=== PATIENT | male | born 1985 | race American Indian/Alaskan Native ===

== ENCOUNTER 2019-01-14 20:10 | Emergency (ER) | payer OTHER ==
[2019-01-14] MEDS ORDERED: KEPPRA 1,000 MG/NS 0.75% 100ML 1,000 MG/100 ML BAG IV ONE (20:30)
[2019-01-14] MEDS ORDERED: ZOFRAN IV ONE (20:32)
[2019-01-14 20:40] LABS: Hematocrit 47.4 % (35.5-45.6); Hemoglobin 16.2 gm/dl (11.8-15.2); Mean Corpuscular HGB Conc 34 % (32-34); Mean Corpuscular Volume 93 fl (84-94); Platelet Count 258 K/mm3 (140-440); Red Blood Count 5.11 M/mm3 (3.65-5.03); Red Cell Distribution Width 14.4 % (13.2-15.2)
[2019-01-14 20:52] LABS: BUN/Creatinine Ratio 10; Blood Urea Nitrogen 12 mg/dL (9-20); Calcium 10.4 mg/dL (8.4-10.2); Hemolysis Index 18
[2019-01-14 21:27] LABS: Amphetamine Screen,Urine PRESUMPTIVE NEGATIVE; Benzodiazepines Screen,Urine PRESUMPTIVE NEGATIVE; Cocaine Screen,Urine PRESUMPTIVE NEGATIVE; Methadone Screen,Urine PRESUMPTIVE NEGATIVE; Opiate Screen,Urine PRESUMPTIVE NEGATIVE
[2019-01-14 21:39] LABS: Cannabinoid Screen,Urine PRESUMPTIVE POSITIVE
--- NOTE | 2019-01-14 23:33 | Emergency Department Report ---
ED Seizure HPI - General Chief Complaint: Seizure Stated Complaint: AMS Time Seen by Provider: 01/14/19 20:28 Source: patient, EMS Mode of arrival: Stretcher Limitations: No Limitations - History of Present Illness Initial Comments: Mr. Gamez is a healthy 33-year-old male who was witnessed to have a seizure while in an intersection. Generalized tonic-clonic seizure witnessed by onlooker. EMS was contacted. 5 years ago he had one seizure. He was evaluated in the emergency department. However he did not follow-up. He is extremely healthy. He does use marijuana. He's had mild headache and abdominal pain after the seizure. However over the last several days he has been in good health. Prior to the seizure he does not have any symptoms or medical concerns. MD Complaint: seizure -: Sudden, This evening Description of Episode: loss of consciousness, tonic-clonic movement Witnessed:: Yes Trauma: No Seizure History: other (1 previous seizure 5 years ago) Place: street/outdoors Associated Symptoms: denies other symptoms - Related Data Previous Rx's Medication Instructions Recorded Last Taken Type levETIRAcetam [Keppra] 500 mg PO BID 30 Days #60 tablet 01/14/19 Unknown Rx Allergies Allergy/AdvReac Type Severity Reaction Status Date / Time No Known Allergies Allergy Unverified 01/14/19 20:18 ED Review of Systems ROS: Stated complaint: AMS Other details as noted in HPI Comment: All other systems reviewed and negative Constitutional: denies: fever, malaise Cardiovascular: denies: chest pain ED Past Medical Hx - Past Medical History Previous Medical History?: Yes Hx Seizures: Yes - Social History Smoking Status: Current Every Day Smoker Substance Use Type: Alcohol, Marijuana - Medications Home Medications: Home Medications Medication Instructions Recorded Confirmed Last Taken Type levETIRAcetam [Keppra] 500 mg PO BID 30 Days #60 tablet 01/14/19 Unknown Rx ED Physical Exam - General Limitations: No Limitations General appearance: alert, in no apparent distress - Head Head exam: Present: atraumatic, normocephalic - Eye Eye exam: Present: normal appearance - ENT ENT exam: Present: mucous membranes moist - Neck Neck exam: Present: normal inspection, full ROM - Respiratory Respiratory exam: Present: normal lung sounds bilaterally. Absent: respiratory distress, wheezes, rales, rhonchi, stridor - Cardiovascular Cardiovascular Exam: Present: regular rate, normal rhythm, normal heart sounds. Absent: systolic murmur, diastolic murmur, rubs, gallop - GI/Abdominal GI/Abdominal exam: Present: soft, normal bowel sounds. Absent: distended, tende rness, guarding, rebound - Rectal Rectal exam: Present: deferred - Extremities Exam Extremities exam: Present: normal inspection - Back Exam Back exam: Present: normal inspection - Neurological Exam Neurological exam: Present: alert, oriented X3, CN II-XII intact, normal gait. Absent: motor sensory deficit - Psychiatric Psychiatric exam: Present: normal affect, normal mood - Skin Skin exam: Present: warm, dry, intact, normal color. Absent: rash ED Course Vital Signs 01/14/19 20:16 Temperature 97.8 F Pulse Rate 74 Respiratory 18 Rate Blood Pressure 117/56 [Right] O2 Sat by Pulse 96 Oximetry ED Medical Decision Making - Lab Data Result diagrams: 01/14/19 20:34 01/14/19 20:34 Laboratory Results - last 24 hr 01/14/19 01/14/19 01/14/19 20:34 20:34 20:34 WBC 6.6 RBC 5.11 H Hgb 16.2 H Hct 47.4 H MCV 93 MCH 32 MCHC 34 RDW 14.4 Plt Count 258 Sodium 141 Potassium 4.6 Chloride 100.5 Carbon Dioxide 14 L Anion Gap 31 BUN 12 Creatinine 1.2 Estimated GFR > 60 BUN/Creatinine Ratio 10 Glucose 123 H Calcium 10.4 H Troponin T < 0.010 Urine Opiates Screen Urine Methadone Screen Ur Barbiturates Screen Ur Phencyclidine Scrn Ur Amphetamines Screen U Benzodiazepines Scrn Urine Cocaine Screen U Marijuana (THC) Screen Drugs of Abuse Note 01/14/19 21:07 WBC RBC Hgb Hct MCV MCH MCHC RDW Plt Count Sodium Potassium Chloride Carbon Dioxide Anion Gap BUN Creatinine Estimated GFR BUN/Creatinine Ratio Glucose Calcium Troponin T Urine Opiates Screen Presumptive negative Urine Methadone Screen Presumptive negative Ur Barbiturates Screen Presumptive negative Ur Phencyclidine Scrn Presumptive negative Ur Amphetamines Screen Presumptive negative U Benzodiazepines Scrn Presumptive negative Urine Cocaine Screen Presumptive negative U Marijuana (THC) Screen Presumptive positive Drugs of Abuse Note Disclamer - EKG Data 01/14/19 23:29 EKG obtained 2050 Normal sinus rhythm nl axis normal intervals repolarization abnormality in inferior leads pericarditis type pattern versus young hyperdynamic athletic heart - Medical Decision Making Mr. Gamez presents with witnessed seizure. Previous history of seizure 5 years ago. CBC unremarkable chemistry noted for decreased bicarbonate level and anion gap acidosis attributed to lactic acidosis in setting of seizure. No indication of acute coronary syndrome. Suspect EKG pattern due to non- athletic stature. Strongly recommended taking antiepileptic medicines Keppra. I did prescribe 30 day supply. The referred him to neurologist. He understands that he is unable to drive or swim. He also understands to not cook over hot fire or hot surface. He understands to avoid ladders, elevated surfaces such as rooftops. Critical care attestation.: If time is entered above; I have spent that time in minutes in the direct care of this critically ill patient, excluding procedure time. ED Disposition Clinical Impression: Seizure Disposition: [id number] TO HOME OR SELFCARE Is pt being admited?: No Does the pt Need Aspirin: No Condition: Stable Instructions: Recurrent Seizures Adult (ED), New-Onset Seizure in Adults (ED) Prescriptions: levETIRAcetam [Keppra] 500 mg PO BID 30 Days #60 tablet Referrals: LILLY RINCON MD [Staff Physician] - 3-5 Days Forms: Work/School Release Form(ED)
[2019-01-15 00:15] VITALS: BP 107/66
== END 2019-01-15 00:22 | disposition home or self-care (01) ==
LOC: ED 20:10
DX: R56.9 Unspecified convulsions (principal); F17.200 Nicotine dependence, unspecified, uncomplicated; F12.10 Cannabis abuse, uncomplicated
CPT/HCPCS: 36415; 80048; 80307; 84484; 85027; 93005; 93010; 96374; 96375; 99284; J1953; J2405